=== PATIENT | male | born 1970 | race African-American/Black ===

== ENCOUNTER 2020-09-23 07:12 | Emergency (ER) | payer OTHER ==
[~2020-09-23] VITALS: Ht 167.6 cm; Wt 75.0 kg
[2020-09-23 07:23] VITALS: BP 130/71
--- NOTE | 2020-09-23 07:30 | NUR ---
pt ambulatory to room from triage, pt changed into gown. pt ambulatory to br with upright steady gait for urine sample
--- NOTE | 2020-09-23 07:45 | NUR ---
PA AT BS
--- NOTE | 2020-09-23 08:05 | NUR ---
Patient given discharge instructions and they have confirmed that they understand the instructions. Patient ambulatory with steady gait.
== END 2020-09-23 08:06 | disposition home or self-care (01) ==
LOC: ED 08:00
DX: Z00.00 Encounter for general adult medical examination without abnormal findings (principal)
CPT/HCPCS: 87491; 87591; 99283